=== PATIENT | female | born 1955 | race Caucasian/White ===

== ENCOUNTER 2017-03-29 10:14 | Emergency (ER) | payer OTHER ==
[2017-03-29 10:29] VITALS: BP 105/64; PULSE 72; TEMP 97; BMI 28.9
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
[2017-03-29] MEDS ORDERED: ACETAMINOPHEN 325 MG TABLET (FP) PO ONE (10:57)
[2017-03-29] MEDS ORDERED: ACETAMINOPHEN 325 MG TABLET (FP) ONE (11:30)
== END 2017-03-29 12:46 | disposition home or self-care (01) ==
LOC: JER 10:14
DX: M25.562 Pain in left knee (principal); V43.52XA Car driver injured in collision with other type car in traffic accident, initial encounter; Y93.89 Activity, other specified; Y92.410 Unspecified street and highway as the place of occurrence of the external cause
CPT/HCPCS: 73562-TC-LT; 99282-25